=== PATIENT | female | born 1975 | race Caucasian/White ===

== ENCOUNTER 2016-07-24 10:07 | Emergency (ER) | payer OTHER ==
[~2016-07-24] VITALS: Ht 157.5 cm; Wt 52.3 kg
[2016-07-24 10:09] VITALS: BP 139/83; PULSE 101; RESP 16; O2SAT 98
[2016-07-24] MEDS ORDERED: 0.9% Sodium Chloride 1,000 ML IV ONE (10:39)
--- NOTE | 2016-07-24 10:39 | ED.REPORT ---
HPI-Abd Pain F 40 and Over Date of Service July 24, 2016 ED Provider: Edith Shukla MD The patient is a 40 year old female w/ a hx of ulcerative colitis (dx 2009) and pancreatitis who presents to the ED due to bloody stools increasing in severity since onset 5 days ago. Associated symptoms include abdominal/neck/back pain, abdominal cramping, vomiting, nausea, decreased appetite and diarrhea. Three weeks ago, the pt was on antibiotics and steroids for a UTI and sinus infection. Her last colitis flare-up was several years ago. Nursing Notes Stated Complaint: ABDOMINAL/BACK/NECK PAIN Chief Complaint: Female Abdominal Pain Nursing Notes Reviewed: Yes Allergies: Coded Allergies: Contrast Media (Unverified Allergy, Severe, iodine, 07/24/16) adhesive (Unverified Allergy, Intermediate, 07/24/16) barium iodide (Unverified Allergy, Intermediate, 07/24/16) Penicillins (Unverified Allergy, Unknown, 07/24/16) Scheduled Ondansetron ODT (Ondansetron ODT) 8 Mg Tab.rapdis 8 MG PO TID Prednisone (PredniSONE) 20 Mg Tablet 40 MG PO DAILY General Time Seen by MD: 10:31 Chief Complaint Other (hematochezia) Hx Obtained From: Patient Arrived By: Walk-in Sudden in Onset?: Yes Onset Occurred: 5 days ago Symptom Duration: Since onset Progression since Onset: Gradually worsening Location: : Abdomen lower Quality: Painful Recent Healthcare: No recent doctor visit, No recent hospitalization Similar Sx Previous: Yes Past Medical History Past Medical History ulcerative colitis chronic pancreatitis Past Surgical History tubal bowel perforation 2nd bowel surgery w/ osteomy abdominal wall hernia surgery Reports: Cholecystectomy, Tonsillectomy Smoking History Unknown if Ever Smoker Social History Other Social History: Local resident Ambulatory Status Independent Review of Systems GI: Reports: Abdominal pain, Diarrhea, Hematochezia, Nausea, Vomiting Musculoskeletal: Reports: Back pain, Neck pain Complete sys rev & neg: except as marked. Physical Exam Vital Signs Vital Signs (First) Date Time Temp Pulse Resp B/P Pulse Ox O2 Delivery O2 Flow Rate FiO2 07/24/16 10:09 36.8 101 16 139/83 98 Room Air Initial VS: Reviewed Head / Eyes: Atraumatic, Normocephalic, PERRL ENT: Mucous membranes moist Neck: Supple, Non-tender Extremities: Vascular intact, Neuro intact, No swelling, No tenderness Skin: Warm, Dry Neurologic: Alert, Oriented General/Constitutional: Awake, Alert, Cooperative, Not toxic appearing good perfusion Respiratory / Chest: Atraumatic, Breath sounds NL, Breath sounds = bilat, No respiratory distress Cardiovascular: Heart rate NL, Regular rhythm, Heart sounds NL, No gallop, No murmurs, No rubs Tenderness/Guarding/Rebound: Positive: Tender LLQ... (Moderate), Tender diffuse (mild) Back: Atraumatic, Inspection NL, Full range of motion Lower Extremity / Pelvis / MS: No edema Interpretation & Diagnostics Lab Results Interpretation Result Diagram: 07/24/16 1055 07/24/16 1055 Test 07/24/16 10:35 07/24/16 10:55 Hold Urine Received (Received) White Blood Count 6.0th/mm3 (3.8-10.1) Red Blood Count 4.50mil/mm3 (3.90-5.20) Hemoglobin 14.0g/dL (12.0-15.6) Hematocrit 39.0% (35.0-46.0) Mean Corpuscular Volume 86.7fL (81-100) Mean Corpuscular Hemoglobin 31.1pg (27.0-35.0) Mean Corpuscular Hemoglobin Concent 35.9% (32.0-37.0) Red Cell Distribution Width 12.2% (12.3-15.4) Platelet Count 246bil/L (150-400) Neutrophils (%) (Auto) 50.2% (40-74) Lymphocytes (%) (Auto) 35.6% (14-46) Monocytes (%) (Auto) 11.3% (4-12) Eosinophils (%) (Auto) 2.0% (0-5) Basophils (%) (Auto) 0.7% (0-3) Hold Blue Top Tube Received (Received) Sodium Level 138mEq/L (134-144) Potassium Level 4.3mEq/L (3.5-5.2) Chloride Level 101mEq/L (97-108) Carbon Dioxide Level 25mmol/L (18-29) Blood Urea Nitrogen 13mg/dL (6-24) Creatinine 0.69mg/dL (0.57-1.00) Estimat Glomerular Filtration Rate 135mL/min (>59) Glucose Level 92mg/dL (60-99) Calcium Level 9.2mg/dL (8.5-10.1) Magnesium Level 2.0mg/dL (1.6-2.6) Total Bilirubin 0.4mg/dL (0.0-1.2) Aspartate Amino Transf (AST/SGOT) 17U/L (0-50) Alanine Aminotransferase (ALT/SGPT) 14U/L (0-32) Alkaline Phosphatase 91U/L (25-150) Total Protein 6.8g/dL (6.4-8.4) Albumin 4.2g/dL (3.4-5.0) Lipase 45U/L (13-60) Hold Brown Top Tube Received (Received) Re-Eval/Medical Decision Med Decision/Clinical Course 40-year-old woman with a complicated medical history and previous diagnosis of ulcerative colitis presents with increasing ulcerative colitis symptoms for the last 5 days. The last 3 days has had increasing left lower quadrant pain with increased mucus and blood per rectum. Her mesalamine enemas have no longer been helpful and yesterday were actually more painful She has had multiple scans due to other medical conditions. As her belly is not surgical at this point she has no fever does not appear acutely toxic or septic at opted not to do a repeat abdominal scan at this time. She has had a previous diagnosis of C. difficile and has been on antibiotics for sinus infection and UTI recently. Stool sample has been collected and sent for stool PCR, which includes C. difficile testing, from the emergency room. Re-Evaluation/Progress : Time of Eval: 14:45 Re-Evaluation/Progress Note: Pt rechecked. Still need a stool sample. All lab work looks normal. Discussed plan of treatment and discharge. Consultation : Referral / Consult Name: Nakia Wilde MD Call Returned at: 13:20 Note: Case discussed with GI. Counseled Regarding: Diagnosis, Lab results, Need for follow-up, When/why to return to ED Discharge & Departure Primary Impression: Ulcerative colitis Ulcerative colitis location: unspecified ulcerative colitis location Digestive disease complication type: without complication Qualified Code: K51.90 - Ulcerative colitis, unspecified, without complications Disposition: Home Discharge Condition All VS Reviewed: Yes Condition: Stable Patient Instructions: Ulcerative Colitis (GEN) Additional Instructions: I am going to send you home with a prescription for Prednisone 40 mg daily. You can also use Zofran for nausea. Let your inflammation calm down before you resume your enemas. 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 We sent a stool sample today to prove that you do not have C Diff again. If you are having more pain, fevers, worsening diarrhea/blood/mucus then you will need to return to the ER. We are always here to help. I hope you feel better soon, Referrals: [facility] Scribe Attestation Portion of this note were transcribed by Bette Perry. I, Dr. Edith Shukla, personally performed the history, physical exam, and medical decision-making: I reviewed and confirmed the accuracy for the information in the transcribed note. Signed by: sg Macario, 07/24/16 Edith Valentino MD July 24, 2016 10:39 Bette Perry July 24, 2016 11:03
[2016-07-24] MEDS ORDERED: HYDROmorphone 1 mg/mL Inj IVPUSH ONE (10:40)
[2016-07-24] MEDS ORDERED: Ondansetron 2 mg/mL 2 mL Inj IVPUSH ONE (10:40)
[2016-07-24] MEDS ORDERED: HYDROmorphone 1 mg/mL Inj IVPUSH PRN (10:40)
[2016-07-24 11:07] LABS: BASOPHILS % (AUTO) 0.7 % (0-3); MONOCYTES % (AUTO) 11.3 % (4-12); Mean Corpuscular Hemoglobin 31.1 pg (27.0-35.0); Mean Corpuscular Volume 86.7 fL (81-100); NEUTROPHILS % (AUTO) 50.2 % (40-74); Platelet Count 246 bil/L (150-400)
[2016-07-24] MEDS ORDERED: predniSONE 20 mg Tablet PO ONE (13:50)
[2016-07-24] MEDS ORDERED: ONDA8TAB10 PO (15:42)
[2016-07-24] MEDS ORDERED: PRE20 PO (15:42)
[2016-07-24 16:07] VITALS: BP 110/80; PULSE 81; RESP 16; O2SAT 99
== END 2016-07-24 16:08 | disposition home or self-care (01) ==
LOC: EDUNIT# 10:07 → SED 10:07
DX: K51.90 Ulcerative colitis, unspecified, without complications (principal); Z90.49 Acquired absence of other specified parts of digestive tract; Z98.890 Other specified postprocedural states; Z88.0 Allergy status to penicillin; Z88.8 Allergy status to other drugs, medicaments and biological substances; Z91.041 Radiographic dye allergy status; Z91.048 Other nonmedicinal substance allergy status
CPT/HCPCS: 36415; 80053; 81025; 83690; 83735; 85025; 96361; 96374; 96375; 99284; J1170; J2405; J7030